=== PATIENT | male | born 1960 | race African-American/Black ===

== ENCOUNTER 2017-09-18 09:49 | Emergency (ER) | payer SELFPAY ==
[2017-09-18] MEDS ORDERED: Multivit, Chewable SF 1 TAB PO SCH (10:45)
[2017-09-18] MEDS ORDERED: Folic Acid 1 MG TAB PO SCH (10:45)
--- NOTE | 2017-09-18 10:57 | CT ---
CT HEAD WITHOUT CONTRAST: Technique: Multiple axial tomograms were head through the head without IV enhancement. History: Seizures. Comparison: 08-18-12 FINDINGS: Ventricles have normal size and position. Mild cortical volume loss. No evidence of intracranial mas s, hemorrhage, or infarct identified. Sinuses and mastoids are clear. IMPRESSION: No evidence of acute abnormality. POS: [facility]
[2017-09-18 11:13] LABS: #Eosinphils 0.2 thou/uL (0.0-0.7); #Lymphocytes 2.2 thou/uL (1.20-3.40); #Monocytes 0.7 thou/uL (0.11-0.59); #Neutrophils 5.9 thou/uL (1.40-6.50); %Basophils 0.4 % (0.0-1.0); %Lymphocytes 24.2 % (21.0-51.0); %Monocytes 8.1 % (0.0-10.0); Hematocrit 51.1 % (42.0-52.0); Mean Platelet Volume 7.4 fL (7.4-10.4); Red Blood Cell (RBC) Count 5.54 mill/uL (4.70-6.10); White Blood Cell (WBC) Count 9.1 thou/uL (4.8-10.8)
[2017-09-18 11:24] LABS: ALT (SGPT) 26 U/L (8-55); AST (SGOT) 27 U/L (5-34); Alkaline Phosphatase 103 U/L (40-150); Anion Gap 12 mmol/L (10-20); BUN (Urea Nitrogen) 8 mg/dL (8.4-25.7); Bilirubin, Total 0.3 mg/dL (0.2-1.2); Calc. Creatinine Clearance 0 mL/min (70-130); Carbon Dioxide 25 mmol/L (22-29); Chloride 103 mmol/L (98-107); Estimated GFR-MDRD Greater than 90; Globulin 4.5 g/dL (2.4-3.5); Protein, Total 8.1 g/dL (6.0-8.3); Target Cells SLIGHT = 2-5 cells (100X) (0-1/hpf)
== END 2017-09-18 12:21 | disposition home or self-care (01) ==
LOC: ERS 09:49
DX: F10.129 Alcohol abuse with intoxication, unspecified (principal); R21 Rash and other nonspecific skin eruption; F17.210 Nicotine dependence, cigarettes, uncomplicated
CPT/HCPCS: 70450; 80053; 85025; 96360

== ENCOUNTER 2018-09-19 18:25 | Emergency (ER) | payer SELFPAY ==
[2018-09-19] MEDS ORDERED: Ketorolac Tromethamine 30 MG/ML VIAL ONE (19:28)
[2018-09-19 19:46] LABS: #Basophils 0.1 thou/uL (0.0-0.2); #Eosinphils 0.2 thou/uL (0.0-0.7); #Lymphocytes 3.1 thou/uL (1.20-3.40); #Monocytes 0.7 thou/uL (0.11-0.59); #Neutrophils 5.4 thou/uL (1.40-6.50); %Basophils 0.6 % (0.0-1.0); %Eosinophils 1.9 % (0.0-10.0); %Lymphocytes 32.6 % (21.0-51.0); %Monocytes 7.7 % (0.0-10.0); %Neutrophils 57.3 % (42.0-75.0); Hemoglobin 16.1 g/dL (14.0-18.0); Mean Corpuscular HGB CONC 31.8 g/dL (32.0-36.0); Mean Corpuscular Hemoglobin 29.2 pg (27.0-31.0); Mean Corpuscular Volume 91.9 fL (78.0-98.0); Platelet Count 229 thou/uL (130-400); RBC Distribution Width 14.3 % (11.5-14.5); White Blood Cell (WBC) Count 9.5 thou/uL (4.8-10.8)
[2018-09-19 19:55] LABS: ALT (SGPT) 26 U/L (8-55); AST (SGOT) 30 U/L (5-34); Alcohol 280 mg/dL (Less than 10); Alkaline Phosphatase 99 U/L (40-150); Anion Gap 14 mmol/L (10-20); BUN (Urea Nitrogen) 5 mg/dL (8.4-25.7); Bilirubin, Total 0.2 mg/dL (0.2-1.2); CK (CPK) 215 U/L (30-200); Calc. Creatinine Clearance 0 mL/min (70-130); Calcium 9.7 mg/dL (7.8-10.44); Carbon Dioxide 22 mmol/L (22-29); Chloride 100 mmol/L (98-107); Estimated GFR-MDRD Greater than 90; Globulin 4.2 g/dL (2.4-3.5); Glucose 78 mg/dL (70-105); Potassium 3.7 mmol/L (3.5-5.1); Protein, Total 8.2 g/dL (6.0-8.3); Sodium 132 mmol/L (136-145)
--- NOTE | 2018-09-19 20:30 | CT ---
CT BRAIN 09/19/18 HISTORY: Seizure. Noncontrast enhanced CT images of the brain obtained. Images demonstrate the brain to be unremarkable. No evidence of intracranial masses, hemorrhages, str okes or contusions seen. Ventricles are of normal size. IMPRESSION: Normal CT brain. POS: [facility]
--- NOTE | 2018-09-19 21:34 | CT ---
CT LUMBAR SPINE: 09/19/18 HISTORY: Fall. Back pain. Axial images were obtained with coronal and sagittal reconstructions. Images demonstrate no significa nt evidence of lumbar spine fractures or acute bony lesions. Some facet degenerative changes seen at the L4-5 and L5-S1 facet joints. No significant evidence of central or neural foraminal narrowing is seen. IMPRESSION: L4- 5 and L5-S1 facet hypertrophic changes. POS: [facility]
== END 2018-09-20 00:13 | disposition home or self-care (01) ==
LOC: ERS 18:25
DX: S30.0XXA Contusion of lower back and pelvis, initial encounter (principal); F10.129 Alcohol abuse with intoxication, unspecified; I10 Essential (primary) hypertension; F17.210 Nicotine dependence, cigarettes, uncomplicated; W19.XXXA Unspecified fall, initial encounter
CPT/HCPCS: 70450; 72131; 80053; 80307; 82550; 84146; 85025; 96361; 96374; J1885

== ENCOUNTER 2021-08-06 19:51 | Emergency (ER) | payer SELFPAY ==
[2021-08-06] MEDS ORDERED: Ketorolac Tromethamine 30 MG/ML VIAL ONE (23:44)
== END 2021-08-07 00:15 | disposition home or self-care (01) ==
LOC: ERS 19:51
DX: G40.909 Epilepsy, unspecified, not intractable, without status epilepticus (principal); M25.552 Pain in left hip; K02.9 Dental caries, unspecified; Z79.899 Other long term (current) drug therapy; I10 Essential (primary) hypertension; F17.210 Nicotine dependence, cigarettes, uncomplicated
CPT/HCPCS: 36415; 70450; 72072; 80177; 96372; J1885

== ENCOUNTER 2022-04-18 12:06 | Emergency (ER) | payer SELFPAY ==
[2022-04-18] MEDS ORDERED: Ketorolac Tromethamine 30 MG/ML VIAL ONE (14:22)
== END 2022-04-18 14:35 | disposition home or self-care (01) ==
LOC: ERS 12:06
DX: M79.605 Pain in left leg (principal); I10 Essential (primary) hypertension; F17.210 Nicotine dependence, cigarettes, uncomplicated; Z79.899 Other long term (current) drug therapy
CPT/HCPCS: 96372; 99283; J1885

== ENCOUNTER 2022-09-21 20:37 | Inpatient (IN) | payer SELFPAY ==
[2022-09-21 21:32] LABS: #Eosinphils 0.2 thou/uL (0.0-0.7); #Lymphocytes 3.1 thou/uL (1.20-3.40); #Monocytes 0.9 thou/uL (0.11-0.59); #Neutrophils 6.6 thou/uL (1.40-6.50); %Basophils 0.3 % (0.0-1.0); %Eosinophils 1.6 % (0.0-10.0); %Lymphocytes 28.5 % (21.0-51.0); %Monocytes 8.7 % (0.0-10.0); %Neutrophils 60.8 % (42.0-75.0); Hemoglobin 14.6 g/dL (14.0-18.0); Mean Corpuscular HGB CONC 32.8 g/dL (32.0-36.0); Mean Corpuscular Hemoglobin 30.2 pg (27.0-31.0); Mean Corpuscular Volume 92.1 fl (78.0-98.0); Mean Platelet Volume 7.9 fL (7.4-10.4); Platelet Count 271 thou/uL (130-400); RBC Distribution Width 13.5 % (11.5-14.5); Red Blood Cell (RBC) Count 4.83 mill/uL (4.70-6.10); White Blood Cell (WBC) Count 10.8 thou/uL (4.8-10.8)
[2022-09-21] MEDS ORDERED: levETIRAcetam 500 MG/5 ML VIAL ONE (21:39)
[2022-09-21 21:54] LABS: ALT (SGPT) 14 U/L (8-55); AST (SGOT) 16 U/L (5-34); Acetaminophen Less than 10.0 mcg/mL (10.0-30.0); Albumin 3.6 g/dL (3.5-5.0); Alcohol 367 mg/dL (Less than 10); Alkaline Phosphatase 108 U/L (40-110); Anion Gap 16 mmol/L (10-20); BUN (Urea Nitrogen) 4 mg/dL (8.4-25.7); Bilirubin, Total 0.4 mg/dL (0.2-1.2); Calc. Creatinine Clearance 0 mL/min (70-130); Calcium 8.9 mg/dL (7.8-10.44); Carbon Dioxide 20 mmol/L (22-29); Chloride 91 mmol/L (98-107); Estimated GFR 105; Globulin 3.4 g/dL (2.4-3.5); Glucose 104 mg/dL (70-105); Potassium 3.8 mmol/L (3.5-5.1); Salicylate Less than 8.0 mg/dL (15.0-30.0); Sodium 123 mmol/L (136-145)
[2022-09-21 21:55] LABS: Amphetamine Not Detected (NotDetected); Barbiturates Screen Not Detected (NotDetected); Benzodiazepine Screen Not Detected (NotDetected); Cocaine Metabolite Screen Not Detected (NotDetected); Methadone Not Detected (NotDetected); Methamphetamine Not Detected (NotDetected); Opiate Screen Not Detected (NotDetected); Oxycodone Screen Not Detected (NotDetected); Phencyclidine (PCP) Not Detected (NotDetected); THC/Cannabinoid Screen Not Detected (NotDetected); Tricyclic Screen Not Detected (NotDetected)
[2022-09-21] MEDS ORDERED: Ketorolac Tromethamine 30 MG/ML VIAL ONE (22:41)
[2022-09-22 00:04] VITALS: BMI 32.5
[2022-09-22 00:34] LABS: Lactic Acid 1.9 mmol/L (0.5-2.2)
[2022-09-22 00:38] LABS: Anion Gap 16 mmol/L (10-20); BUN (Urea Nitrogen) 4 mg/dL (8.4-25.7); Calc. Creatinine Clearance 154 mL/min (70-130); Calcium 8.9 mg/dL (7.8-10.44); Carbon Dioxide 20 mmol/L (22-29); Chloride 96 mmol/L (98-107); Estimated GFR 108; Glucose 98 mg/dL (70-105); Magnesium 1.9 mg/dL (1.6-2.6); Potassium 3.5 mmol/L (3.5-5.1); Sodium 128 mmol/L (136-145); Uric Acid 4.9 mg/dL (3.5-7.2)
[2022-09-22] MEDS ORDERED: Ondansetron PF 4 MG/2 ML Vial IVP PRN (00:39)
[2022-09-22] MEDS ORDERED: Midazolam HCl 2 mg/2 ml Vial SLOW IVP PRN (00:54)
[2022-09-22] MEDS: Nicotine 21 MG PATCH TD SCH (03:38)
[2022-09-22 05:01] LABS: Anion Gap 13 mmol/L (10-20); BUN (Urea Nitrogen) Less than 4 mg/dL (8.4-25.7); Calc. Creatinine Clearance 165 mL/min (70-130); Carbon Dioxide 23 mmol/L (22-29); Chloride 99 mmol/L (98-107); Estimated GFR 111; Glucose 95 mg/dL (70-105); Potassium 3.5 mmol/L (3.5-5.1); Sodium 131 mmol/L (136-145)
[2022-09-22] MEDS: Dextrose 5%-Lactated Ringers 1,000 ML IV SCH ×3 (05:25→20:30)
[2022-09-22] MEDS ORDERED: Ibuprofen 200 MG TAB ONE (05:51)
[2022-09-22] MEDS ORDERED: Morphine 4 MG/ML VIAL SLOW IVP SCH ×2 (06:45→09:45)
[2022-09-22] MEDS ORDERED: Morphine 4 MG/ML VIAL ONE ×2 (06:45→08:54)
[2022-09-22] MEDS ORDERED: Potassium Chloride 20 MEQ TAB PO SCH (08:30)
[2022-09-22] MEDS ORDERED: Potassium Chloride 20 MEQ TAB ONE (08:40)
[2022-09-22] MEDS ORDERED: Enoxaparin Sodium 30 MG/0.3 ML SYRINGE ONE (08:40)
[2022-09-22] MEDS: Enoxaparin Sodium 30 MG/0.3 ML SYRINGE SC SCH (08:43)
[2022-09-22 08:52] LABS: Anion Gap 14 mmol/L (10-20); BUN (Urea Nitrogen) Less than 4 mg/dL (8.4-25.7); Calc. Creatinine Clearance 157 mL/min (70-130); Calcium 9.2 mg/dL (7.8-10.44); Carbon Dioxide 23 mmol/L (22-29); Chloride 102 mmol/L (98-107); Estimated GFR 109; Glucose 108 mg/dL (70-105); Sodium 135 mmol/L (136-145)
[2022-09-22] MEDS ORDERED: Morphine 2 MG/ML VIAL SLOW IVP ONE (09:04)
[2022-09-22] MEDS ORDERED: Lorazepam 2 MG/ML VIAL IM PRN (09:31)
[2022-09-22 09:43] LABS: Troponin I Less than 0.010 ng/mL (< 0.028)
[2022-09-22] MEDS ORDERED: Electrolyte Replacement Protocol 1 EACH FS SCH (09:45)
[2022-09-22] MEDS ORDERED: Thiamine 100 MG TAB PO SCH (09:45)
[2022-09-22 10:13] LABS: Phosphorus 4.2 mg/dL (2.3-4.7)
[2022-09-22] MEDS ORDERED: Nitroglycerin 0.4 MG TAB (25 Tab Bottle) SL PRN (10:14)
[2022-09-22 11:01] LABS: Potassium, Urine 67.8 mmol/L
[2022-09-22] MEDS ORDERED: Magnesium 2 GM/50 ML(in water) 2 GM in Premix Bag 1 BAG IVPB SCH (11:15)
[2022-09-22] MEDS: Lorazepam 1 MG TAB PO SCH ×3 (11:32→22:06)
[2022-09-22] MEDS ORDERED: Ketorolac Tromethamine 30 MG/ML VIAL IVP SCH (11:33)
[2022-09-22] MEDS ORDERED: Morphine 2 MG/ML VIAL SLOW IVP PRN (11:37)
[2022-09-22 13:24] LABS: Anion Gap 15 mmol/L (10-20); BUN (Urea Nitrogen) 4 mg/dL (8.4-25.7); Calc. Creatinine Clearance 162 mL/min (70-130); Calcium 9.7 mg/dL (7.8-10.44); Carbon Dioxide 25 mmol/L (22-29); Chloride 100 mmol/L (98-107); Estimated GFR 110; Glucose 94 mg/dL (70-105); Sodium 136 mmol/L (136-145)
[2022-09-22 13:29] LABS: Troponin I Less than 0.010 ng/mL (< 0.028)
[2022-09-22] MEDS: AMPicillin 1 GM in Sodium Chloride 0.9% 100 ML IVPB SCH ×3 (13:56→23:29)
[2022-09-22 14:28] LABS: Albumin 3.8 g/dL (3.5-5.0); Anion Gap 18 mmol/L (10-20); BUN (Urea Nitrogen) 4 mg/dL (8.4-25.7); BUN/Creatinine Ratio 6.56; Calc. Creatinine Clearance 162 mL/min (70-130); Calcium 9.7 mg/dL (7.8-10.44); Carbon Dioxide 22 mmol/L (22-29); Chloride 102 mmol/L (98-107); Estimated GFR 110; Glucose 94 mg/dL (70-105); Magnesium 1.8 mg/dL (1.6-2.6); Phosphorus 3.9 mg/dL (2.3-4.7); Potassium 4.1 mmol/L (3.5-5.1); Sodium 138 mmol/L (136-145)
[2022-09-22 16:10] LABS: Troponin I Less than 0.010 ng/mL (< 0.028)
[2022-09-22 16:16] LABS: Anion Gap 15 mmol/L (10-20); BUN (Urea Nitrogen) Less than 4 mg/dL (8.4-25.7); Calc. Creatinine Clearance 152 mL/min (70-130); Calcium 9.5 mg/dL (7.8-10.44); Carbon Dioxide 23 mmol/L (22-29); Chloride 100 mmol/L (98-107); Estimated GFR 108; Glucose 153 mg/dL (70-105); Potassium 3.9 mmol/L (3.5-5.1); Sodium 134 mmol/L (136-145)
[2022-09-22] MEDS ORDERED: Electrolyte Replacement Protocol FS PRN (17:00)
[2022-09-22] MEDS: levETIRAcetam 500 MG TAB PO SCH (20:30)
[2022-09-22] MEDS: Atorvastatin Calcium 40 MG TAB PO SCH (20:30)
[2022-09-22 20:52] LABS: Anion Gap 11 mmol/L (10-20); BUN (Urea Nitrogen) 4 mg/dL (8.4-25.7); Calc. Creatinine Clearance 159 mL/min (70-130); Calcium 9.4 mg/dL (7.8-10.44); Carbon Dioxide 24 mmol/L (22-29); Chloride 99 mmol/L (98-107); Estimated GFR 109; Glucose 107 mg/dL (70-105); Potassium 3.9 mmol/L (3.5-5.1); Sodium 130 mmol/L (136-145)
[2022-09-22] MEDS: Morphine 4 MG/ML VIAL SLOW IVP PRN (22:06)
[2022-09-23] MEDS: Nicotine 21 MG PATCH TD SCH (02:25)
[2022-09-23] MEDS: Morphine 4 MG/ML VIAL SLOW IVP PRN ×2 (02:25→21:28)
[2022-09-23] MEDS: AMPicillin 1 GM in Sodium Chloride 0.9% 100 ML IVPB SCH ×3 (04:59→17:26)
[2022-09-23] MEDS: Lorazepam 1 MG TAB PO SCH ×4 (04:59→21:27)
[2022-09-23 05:01] LABS: Magnesium 1.8 mg/dL (1.6-2.6)
[2022-09-23] MEDS: Dextrose 5%-Lactated Ringers 1,000 ML IV SCH (07:29)
[2022-09-23 07:51] LABS: #Basophils 0.1 thou/uL (0.0-0.2); #Lymphocytes 1.6 thou/uL (1.20-3.40); #Monocytes 1.4 thou/uL (0.11-0.59); #Neutrophils 11.6 thou/uL (1.40-6.50); %Basophils 0.6 % (0.0-1.0); %Eosinophils 0.2 % (0.0-10.0); %Lymphocytes 10.6 % (21.0-51.0); %Monocytes 9.2 % (0.0-10.0); %Neutrophils 79.3 % (42.0-75.0); Hemoglobin 15.9 g/dL (14.0-18.0); Mean Corpuscular HGB CONC 31.9 g/dL (32.0-36.0); Mean Corpuscular Hemoglobin 29.4 pg (27.0-31.0); Mean Platelet Volume 7.9 fL (7.4-10.4); Platelet Count 273 thou/uL (130-400); RBC Distribution Width 13.4 % (11.5-14.5); Red Blood Cell (RBC) Count 5.41 mill/uL (4.70-6.10); White Blood Cell (WBC) Count 14.6 thou/uL (4.8-10.8)
[2022-09-23] MEDS ORDERED: Magnesium 2 GM/50 ML(in water) 2 GM in Premix Bag 1 BAG IVPB SCH (08:00)
[2022-09-23 08:10] LABS: Albumin 3.5 g/dL (3.5-5.0); Anion Gap 11 mmol/L (10-20); BUN (Urea Nitrogen) 4 mg/dL (8.4-25.7); BUN/Creatinine Ratio 6.25; Calc. Creatinine Clearance 154 mL/min (70-130); Calcium 10.1 mg/dL (7.8-10.44); Carbon Dioxide 25 mmol/L (22-29); Chloride 96 mmol/L (98-107); Estimated GFR 108; Glucose 113 mg/dL (70-105); Magnesium 1.9 mg/dL (1.6-2.6); Phosphorus 3.4 mg/dL (2.3-4.7); Potassium 3.9 mmol/L (3.5-5.1); Sodium 128 mmol/L (136-145)
[2022-09-23] MEDS: Amlodipine 5 MG TAB PO SCH (08:28)
[2022-09-23] MEDS: levETIRAcetam 500 MG TAB PO SCH ×2 (08:28→21:27)
[2022-09-23] MEDS: Folic Acid 1 MG TAB PO SCH (08:28)
[2022-09-23] MEDS: Multivit, Therapeutic 1 TAB PO SCH (08:28)
[2022-09-23] MEDS: Thiamine 100 MG TAB PO SCH (08:28)
[2022-09-23] MEDS: Enoxaparin Sodium 30 MG/0.3 ML SYRINGE SC SCH (08:29)
[2022-09-23] MEDS ORDERED: Sodium Chloride 1 GM TAB PO SCH (10:45)
[2022-09-23] MEDS: Sodium Chloride 1 GM TAB PO SCH ×2 (14:24→21:28)
[2022-09-23] MEDS: metroNIDAZOLE 500 MG in Premix Bag 1 BAG IVPB SCH ×2 (14:25→21:29)
[2022-09-23] MEDS: Atorvastatin Calcium 40 MG TAB PO SCH (21:27)
[2022-09-24] MEDS: AMPicillin 1 GM in Sodium Chloride 0.9% 100 ML IVPB SCH ×3 (00:57→11:55)
[2022-09-24] MEDS: Nicotine 21 MG PATCH TD SCH (01:04)
[2022-09-24] MEDS: Lorazepam 1 MG TAB PO SCH ×2 (04:53→10:36)
[2022-09-24] MEDS: metroNIDAZOLE 500 MG in Premix Bag 1 BAG IVPB SCH ×3 (05:01→20:33)
[2022-09-24] MEDS: Enoxaparin Sodium 30 MG/0.3 ML SYRINGE SC SCH (10:33)
[2022-09-24] MEDS: Amlodipine 5 MG TAB PO SCH (10:33)
[2022-09-24] MEDS: Folic Acid 1 MG TAB PO SCH (10:33)
[2022-09-24] MEDS: Thiamine 100 MG TAB PO SCH (10:33)
[2022-09-24] MEDS: Sodium Chloride 1 GM TAB PO SCH ×3 (10:34→20:32)
[2022-09-24] MEDS: levETIRAcetam 500 MG TAB PO SCH ×2 (10:34→20:33)
[2022-09-24] MEDS: Multivit, Therapeutic 1 TAB PO SCH (10:34)
[2022-09-24 14:23] LABS: Anion Gap 11 mmol/L (10-20); BUN (Urea Nitrogen) 7 mg/dL (8.4-25.7); Calc. Creatinine Clearance 141 mL/min (70-130); Calcium 9.5 mg/dL (7.8-10.44); Carbon Dioxide 26 mmol/L (22-29); Chloride 98 mmol/L (98-107); Estimated GFR 105; Glucose 129 mg/dL (70-105); Potassium 3.8 mmol/L (3.5-5.1); Sodium 131 mmol/L (136-145)
[2022-09-24] MEDS: Clindamycin 150 MG CAP PO SCH ×2 (18:05→23:29)
[2022-09-24] MEDS: Atorvastatin Calcium 40 MG TAB PO SCH (20:33)
[2022-09-25] MEDS: Nicotine 21 MG PATCH TD SCH (01:45)
[2022-09-25] MEDS: metroNIDAZOLE 500 MG in Premix Bag 1 BAG IVPB SCH (06:08)
[2022-09-25] MEDS: Clindamycin 150 MG CAP PO SCH (06:09)
[2022-09-25] MEDS: Multivit, Therapeutic 1 TAB PO SCH (08:37)
[2022-09-25] MEDS: Amlodipine 5 MG TAB PO SCH (08:37)
[2022-09-25] MEDS: Thiamine 100 MG TAB PO SCH (08:37)
[2022-09-25] MEDS: Folic Acid 1 MG TAB PO SCH (08:37)
[2022-09-25] MEDS: levETIRAcetam 500 MG TAB PO SCH (08:37)
[2022-09-25] MEDS: Sodium Chloride 1 GM TAB PO SCH (08:38)
[2022-09-25] MEDS ORDERED: Enoxaparin Sodium 40 MG/0.4 ML SYRINGE SC SCH (09:00)
[2022-09-25 09:28] LABS: Anion Gap 13 mmol/L (10-20); BUN (Urea Nitrogen) 8 mg/dL (8.4-25.7); Calc. Creatinine Clearance 135 mL/min (70-130); Calcium 9.8 mg/dL (7.8-10.44); Carbon Dioxide 25 mmol/L (22-29); Chloride 99 mmol/L (98-107); Estimated GFR 104; Glucose 99 mg/dL (70-105); Potassium 3.8 mmol/L (3.5-5.1); Sodium 133 mmol/L (136-145)
[2022-09-25] MEDS ORDERED: Lorazepam 0.5 MG TAB PO PRN (09:31)
[2022-09-25] MEDS ORDERED: Thiamine 100 MG TAB PO SCH (09:45)
[2022-09-26 02:36] VITALS: BP 127/85
[2022-09-26 02:49] VITALS: TEMP 98.3
== END 2022-09-25 10:30 | disposition home or self-care (01) | DRG 644 ==
LOC: ERS 20:37 → ERHOLD 23:28 → 2NO 09-22 09:30 → T4-A 09-24 17:47
PROVIDERS: ADMIT Internal Medicine; ATTEND Hospitalist
DX: E22.2 Syndrome of inappropriate secretion of antidiuretic hormone (principal); E87.29 Other acidosis; G40.909 Epilepsy, unspecified, not intractable, without status epilepticus; E87.6 Hypokalemia; I95.9 Hypotension, unspecified; F10.129 Alcohol abuse with intoxication, unspecified; Y90.8 Blood alcohol level of 240 mg/100 ml or more; Z20.822 Contact with and (suspected) exposure to COVID-19; M19.90 Unspecified osteoarthritis, unspecified site; C61 Malignant neoplasm of prostate; F17.210 Nicotine dependence, cigarettes, uncomplicated; Z79.899 Other long term (current) drug therapy; I10 Essential (primary) hypertension; K04.7 Periapical abscess without sinus; R07.9 Chest pain, unspecified; E78.1 Pure hyperglyceridemia; E66.01 Morbid (severe) obesity due to excess calories; Z68.32 Body mass index [BMI] 32.0-32.9, adult
CPT/HCPCS: 36415; 70450; 70487; 71045; 71275; 80048; 80053; 80069; 80177; 80306; 80307; 82550; 83605; 83735; 83930; 83935; 84100; 84133; 84146; 84300; 84443; 84484; 84550; 85025; 85379; 87040; 87086; 93005; 93010; 94640; 96365; 96375; J0290; J1650; J1885; J1953; J2270; J3475; J3490; J7620; U0003; U0005

== ENCOUNTER 2024-11-16 16:39 | Emergency (ER) | payer BC, SELFPAY ==
[2024-11-16 18:32] LABS: MONO NEGATIVE CONTROL ZONE White (Negative) (White); MONO POSITIVE CONTROL Pink Line (Positive) (PINK/RED); Mononucleosis NEGATIVE (NEGATIVE)
[2024-11-16 19:34] LABS: #Basophils Less than 0.03 10x3/uL (0.0-0.2); %Basophils 0.2 % (0.0-1.0); %Eosinophils 0.3 % (0.0-10.0); %Lymphocytes 19.2 % (21.0-51.0); %Monocytes 9.1 % (0.0-10.0); %Neutrophils 70.8 % (42.0-75.0); Hematocrit 45.9 % (42.0-52.0); Hemoglobin 15.6 g/dL (14.0-18.0); Mean Corpuscular Hemoglobin 27.2 pg (27.0-31.0); Mean Corpuscular Volume 80.1 fL (78.0-98.0); Mean Platelet Volume 9.9 fL (7.4-10.4); Platelet Count 290 10x3/uL (130-400); RBC Distribution Width 14.8 % (11.5-14.5); Red Blood Cell (RBC) Count 5.73 mill/uL (4.70-6.10)
[2024-11-16] MEDS ORDERED: Ketorolac Tromethamine 30 MG (1 mL) VIAL ONE (19:40)
[2024-11-16] MEDS ORDERED: Dexamethasone 10 MG/ML VIAL ONE (19:43)
[2024-11-16 19:45] LABS: ALT (SGPT) 36 U/L (8-55); AST (SGOT) 32 U/L (5-34); Albumin 3.3 g/dL (3.4-4.8); Alkaline Phosphatase 97 U/L (40-110); Anion Gap 17 mmol/L (10-20); BUN (Urea Nitrogen) 7 mg/dL (8.4-25.7); Bilirubin, Total 0.6 mg/dL (0.2-1.2); Calc. Creatinine Clearance 0 mL/min (70-130); Calcium 10.1 mg/dL (7.8-10.44); Carbon Dioxide 29 mmol/L (23-31); Chloride 90 mmol/L (98-107); Estimated GFR 100; Globulin 5.3 g/dL (2.4-3.5); Glucose 103 mg/dL (80-115); Potassium 3.9 mmol/L (3.5-5.1); Protein, Total 8.6 g/dL (5.8-8.1); Sodium 132 mmol/L (136-145)
[2024-11-16 19:46] LABS: Acetaminophen Less than 10 mcg/mL (Less than 10); Salicylate Less than 8.0 mg/dL (Less than 8.0)
[2024-11-16] MEDS ORDERED: Sodium Chloride 0.9% 100 ML ONE (22:51)
[2024-11-16] MEDS ORDERED: Piperacillin/Tazobactam 4.5 GM VIAL ONE (22:51)
== END 2024-11-17 08:55 | disposition short-term general hospital (02) ==
LOC: ERS 16:39
DX: M46.22 Osteomyelitis of vertebra, cervical region (principal); I10 Essential (primary) hypertension; F17.210 Nicotine dependence, cigarettes, uncomplicated; Z79.899 Other long term (current) drug therapy; Z86.73 Personal history of transient ischemic attack (TIA), and cerebral infarction without residual deficits
CPT/HCPCS: 36415; 70491; 71045; 80053; 80307; 83605; 84145; 84443; 85025; 86141; 86308; 87081; 87430; 96365; 96372; 96375; J1100; J1885; J2543

== ENCOUNTER 2024-12-29 20:39 | Inpatient (IN) | payer OTHER ==
[~2024-12-29 20:39] MED LIST: Iopamidol-370 76% 500 ML MDV (1 ML CHARGE) ONE
[2024-12-29] MEDS ORDERED: Piperacillin/Tazobactam 4.5 GM VIAL ONE (21:29)
[2024-12-29] MEDS ORDERED: Sodium Chloride 0.9% 100 ML ONE (21:29)
[2024-12-29 21:50] LABS: #Basophils 0.05 10x3/uL (0.0-0.2); %Basophils 0.6 % (0.0-1.0); %Eosinophils 1.6 % (0.0-10.0); %Lymphocytes 42.8 % (21.0-51.0); %Monocytes 9.6 % (0.0-10.0); %Neutrophils 45.1 % (42.0-75.0); Hematocrit 32.1 % (42.0-52.0); Hemoglobin 10.7 g/dL (14.0-18.0); Mean Corpuscular HGB CONC 33.3 g/dL (32.0-36.0); Mean Corpuscular Hemoglobin 26.8 pg (27.0-31.0); Mean Corpuscular Volume 80.3 fL (78.0-98.0); Mean Platelet Volume 9.6 fL (7.4-10.4); Platelet Count 363 10x3/uL (130-400); RBC Distribution Width 17.7 % (11.5-14.5)
[2024-12-29 22:09] LABS: ALT (SGPT) 28 U/L (Less than 45); AST (SGOT) 40 U/L (11-34); Albumin 3.1 g/dL (3.1-4.5); Alkaline Phosphatase 178 U/L (40-110); Anion Gap 21 mmol/L (10-20); BUN (Urea Nitrogen) 5 mg/dL (8.4-25.7); Bilirubin, Total 0.4 mg/dL (0.3-1.2); Calc. Creatinine Clearance 0 mL/min (70-130); Calcium 9.2 mg/dL (7.8-10.44); Carbon Dioxide 28 mmol/L (23-31); Chloride 93 mmol/L (98-107); Estimated GFR 103; Globulin 4.7 g/dL (2.4-3.5); Glucose 105 mg/dL (80-115); Potassium 2.9 mmol/L (3.5-5.1); Protein, Total 7.8 g/dL (5.8-8.1); Sodium 139 mmol/L (136-145)
[2024-12-29] MEDS ORDERED: Potassium Bicarbonate/Cit Ac 20 MEQ TAB ONE (22:41)
[2024-12-29] MEDS ORDERED: Ondansetron PF 4 MG/2 ML Vial IVP PRN (23:51)
[2024-12-29 23:57] LABS: Bacteria/HPF None Seen HPF (None Seen); Bilirubin Negative (Negative); Blood, Urine Negative (Negative); CAUTI Indications for Culture Dysuria,urgency,freq; Clarity Clear (Clear); Glucose, Urine (Dipstick) Normal (Negative); Ketone, Urine Negative (Negative); Leukocyte Negative Leu/uL (Negative); Nitrite Negative (Negative); Protein, Urine (Dipstick) Negative (Neg-Trace); RBC/HPF 0-3 HPF (0-3); Specific Gravity, Urine 1.008 (1.002-1.036); Squamous Epithelial 0-3 HPF (0-3); Urobilinogen 3 mg/dL (Less than 2); WBC/HPF 0-3 HPF (0-3)
[2024-12-29] MEDS ORDERED: Potassium Chloride 20 MEQ (100 mL) BAG ONE (23:59)
[2024-12-30 00:03] LABS: Urine Culture Reflex No No
[2024-12-30] MEDS: Vancomycin (BATCH) 2 GM in Premix 1 BAG IVPB SCH (00:38)
[2024-12-30] MEDS: Dextrose 5 % And 0.9 % NaCl 1,000 ML IV SCH (01:01)
[2024-12-30] MEDS: Potassium Bicarbonate/Cit Ac 20 MEQ TAB PER TUBE SCH ×2 (01:27→02:40)
[2024-12-30] MEDS: Acetaminophen 325 MG TAB PER TUBE PRN (01:27)
[2024-12-30 01:33] LABS: Lactic Acid 4.04 mmol/L (0.50-2.20)
[2024-12-30 01:40] LABS: Influenza A by NAA Not Detected (NotDetected); Influenza B by NAA Not Detected (NotDetected); RSV by NAA Not Detected (NotDetected); SARS-CoV-2 NAA Rapid Test Not Detected (NotDetected)
[2024-12-30] MEDS: Thiamine HCl 200 MG/2 ML VIAL SLOW IVP SCH (02:30)
[2024-12-30 03:01] VITALS: BMI 29.0
[2024-12-30] MEDS: Ketorolac Tromethamine 30 MG (1 mL) VIAL IVP SCH (03:39)
[2024-12-30] MEDS: Piperacillin/Tazobactam 3.375 GM in Sodium Chloride 0.9% 100 ML IVPB SCH (03:40)
[2024-12-30 04:23] LABS: #Basophils 0.06 10x3/uL (0.0-0.2); %Basophils 0.7 % (0.0-1.0); %Eosinophils 1.1 % (0.0-10.0); %Lymphocytes 20.5 % (21.0-51.0); %Monocytes 11.9 % (0.0-10.0); %Neutrophils 65.5 % (42.0-75.0); Hematocrit 29.5 % (42.0-52.0); Hemoglobin 9.9 g/dL (14.0-18.0); Mean Corpuscular HGB CONC 33.6 g/dL (32.0-36.0); Mean Corpuscular Hemoglobin 26.8 pg (27.0-31.0); Mean Corpuscular Volume 79.7 fL (78.0-98.0); Mean Platelet Volume 10.1 fL (7.4-10.4); Platelet Count 349 10x3/uL (130-400); RBC Distribution Width 17.9 % (11.5-14.5)
[2024-12-30 04:42] LABS: Anion Gap 19 mmol/L (10-20); BUN (Urea Nitrogen) 5 mg/dL (8.4-25.7); Calc. Creatinine Clearance 118 mL/min (70-130); Calcium 8.6 mg/dL (7.8-10.44); Carbon Dioxide 28 mmol/L (23-31); Chloride 97 mmol/L (98-107); Estimated GFR 103; Glucose 132 mg/dL (80-115); Magnesium 1.3 mg/dL (1.6-2.6); Potassium 3.1 mmol/L (3.5-5.1); Sodium 141 mmol/L (136-145)
[2024-12-30 04:45] LABS: Lactic Acid 4.47 mmol/L (0.50-2.20)
[2024-12-30] MEDS: Sodium Chloride 0.9% 500 ML IV SCH (05:12)
[2024-12-30] MEDS: Magnesium 2 GM/50 ML(in water) 2 GM in Premix 1 BAG IVPB SCH (05:17)
[2024-12-30] MEDS: Sodium Chloride 0.9% 1,000 ML IV SCH (06:12)
[2024-12-30] MEDS: Magnesium Sulfate 2 GM in Sodium Chloride 0.9% 100 ML IVPB SCH (06:12)
[2024-12-30 06:25] LABS: Legionella Urinary Ag Negative (Negative); Strep pneumo Urine Ag NEGATIVE (NEGATIVE)
[2024-12-30 07:32] LABS: Lactic Acid 3.35 mmol/L (0.50-2.20)
[2024-12-30] MEDS ORDERED: Vancomycin 1 GM in Premix 1 BAG IVPB SCH (09:00)
[2024-12-30] MEDS: FLU (Fluarix Triv) TS24-25(6MOS UP)/PF 45 MCG/0.5 ML Syringe IM ONE (09:09)
[2024-12-30] MEDS: Chlorhexidine Gluconate 15 ML UDCUP SSP SCH (09:21)
[2024-12-30] MEDS: Pantoprazole 40 MG VIAL IVP SCH (09:21)
[2024-12-30] MEDS: Thiamine 100 MG TAB PER TUBE SCH (09:22)
[2024-12-30] MEDS: levETIRAcetam 500 MG TAB PER TUBE SCH (09:22)
[2024-12-30] MEDS: Amlodipine 5 MG TAB PER TUBE SCH (09:22)
[2024-12-30] MEDS: Folic Acid 1 MG TAB PER TUBE SCH (09:22)
[2024-12-30] MEDS: VANCOMYCIN 1.25 GM/250 ML BAG 1.25 GM in Premix 1 BAG IVPB SCH (09:22)
[2024-12-30 09:47] VITALS: BMI 29.0
[2024-12-30] MEDS ORDERED: Lorazepam 2 MG/ML VIAL SLOW IVP PRN (11:45)
[2024-12-30] MEDS: Tamsulosin HCl 0.4 MG CAP PO SCH (20:32)
[2024-12-30] MEDS: Rosuvastatin 10 MG TAB PER TUBE SCH (20:32)
[2024-12-30] MEDS: Enoxaparin 40 MG (0.4 mL) SYRINGE SC SCH (20:33)
[2024-12-31 09:33] LABS: #Basophils Less than 0.03 10x3/uL (0.0-0.2); %Basophils 0.1 % (0.0-1.0); %Eosinophils 4.5 % (0.0-10.0); %Lymphocytes 25.2 % (21.0-51.0); %Monocytes 7.8 % (0.0-10.0); %Neutrophils 62.1 % (42.0-75.0); Hematocrit 29.9 % (42.0-52.0); Hemoglobin 9.7 g/dL (14.0-18.0); Mean Corpuscular HGB CONC 32.4 g/dL (32.0-36.0); Mean Corpuscular Hemoglobin 26.3 pg (27.0-31.0); Platelet Count 289 10x3/uL (130-400); RBC Distribution Width 18.6 % (11.5-14.5); Red Blood Cell (RBC) Count 3.69 mill/uL (4.70-6.10)
[2024-12-31 09:55] LABS: Lactic Acid 1.19 mmol/L (0.50-2.20)
[2024-12-31 10:01] LABS: ALT (SGPT) 17 U/L (Less than 45); AST (SGOT) 23 U/L (11-34); Albumin 2.4 g/dL (3.1-4.5); Alkaline Phosphatase 145 U/L (40-110); Anion Gap 13 mmol/L (10-20); BUN (Urea Nitrogen) Less than 4 mg/dL (8.4-25.7); Bilirubin, Total 0.8 mg/dL (0.3-1.2); Calc. Creatinine Clearance 139 mL/min (70-130); Calcium 8.4 mg/dL (7.8-10.44); Carbon Dioxide 27 mmol/L (23-31); Chloride 99 mmol/L (98-107); Estimated GFR 108; Globulin 3.8 g/dL (2.4-3.5); Glucose 110 mg/dL (80-115); Magnesium 1.5 mg/dL (1.6-2.6); Potassium 2.6 mmol/L (3.5-5.1); Protein, Total 6.2 g/dL (5.8-8.1); Sodium 136 mmol/L (136-145)
[2024-12-31] MEDS ORDERED: Electrolyte Replacement Protocol FS PRN (11:30)
[2024-12-31] MEDS ORDERED: Potassium Chloride 20 MEQ TAB PO SCH (11:45)
[2024-12-31] MEDS: Potassium Chloride 20 MEQ in Premix 1 BAG IVPB SCH (12:52)
[2024-12-31] MEDS: Magnesium 2 GM/50 ML(in water) 2 GM in Premix 1 BAG IVPB SCH (15:15)
[2025-01-01] MEDS: Potassium Chloride 20 MEQ in Premix 1 BAG IVPB SCH (01:08)
[2025-01-01 04:18] LABS: #Basophils 0.03 10x3/uL (0.0-0.2); %Basophils 0.3 % (0.0-1.0); %Eosinophils 7.2 % (0.0-10.0); %Lymphocytes 20.4 % (21.0-51.0); %Monocytes 5.9 % (0.0-10.0); %Neutrophils 65.8 % (42.0-75.0); Hematocrit 32.2 % (42.0-52.0); Hemoglobin 10.4 g/dL (14.0-18.0); Mean Corpuscular HGB CONC 32.3 g/dL (32.0-36.0); Mean Corpuscular Volume 83.6 fL (78.0-98.0); Mean Platelet Volume 10.7 fL (7.4-10.4); Platelet Count 270 10x3/uL (130-400); RBC Distribution Width 19.1 % (11.5-14.5); Red Blood Cell (RBC) Count 3.85 mill/uL (4.70-6.10)
[2025-01-01 04:32] LABS: ALT (SGPT) 14 U/L (Less than 45); AST (SGOT) 24 U/L (11-34); Albumin 2.3 g/dL (3.1-4.5); Alkaline Phosphatase 135 U/L (40-110); Anion Gap 12 mmol/L (10-20); BUN (Urea Nitrogen) 4 mg/dL (8.4-25.7); Bilirubin, Total 0.5 mg/dL (0.3-1.2); Calc. Creatinine Clearance 141 mL/min (70-130); Calcium 8.3 mg/dL (7.8-10.44); Carbon Dioxide 23 mmol/L (23-31); Chloride 105 mmol/L (98-107); Estimated GFR 108; Glucose 112 mg/dL (80-115); Potassium 3.2 mmol/L (3.5-5.1); Protein, Total 6.3 g/dL (5.8-8.1); Sodium 137 mmol/L (136-145)
[2025-01-01] MEDS: Potassium Chloride 20 MEQ TAB PO SCH (09:04)
[2025-01-02 08:10] LABS: #Basophils 0.05 10x3/uL (0.0-0.2); %Basophils 0.4 % (0.0-1.0); %Lymphocytes 17.5 % (21.0-51.0); %Monocytes 5.7 % (0.0-10.0); %Neutrophils 68.1 % (42.0-75.0); Hematocrit 33.4 % (42.0-52.0); Hemoglobin 10.5 g/dL (14.0-18.0); Mean Corpuscular HGB CONC 31.4 g/dL (32.0-36.0); Mean Corpuscular Hemoglobin 27.3 pg (27.0-31.0); Mean Platelet Volume 10.6 fL (7.4-10.4); Platelet Count 210 10x3/uL (130-400); RBC Distribution Width 20.6 % (11.5-14.5); Red Blood Cell (RBC) Count 3.84 mill/uL (4.70-6.10)
[2025-01-02 08:25] LABS: ALT (SGPT) 12 U/L (Less than 45); AST (SGOT) 17 U/L (11-34); Albumin 2.4 g/dL (3.1-4.5); Alkaline Phosphatase 125 U/L (40-110); Anion Gap 11 mmol/L (10-20); BUN (Urea Nitrogen) 6 mg/dL (8.4-25.7); Bilirubin, Total 0.4 mg/dL (0.3-1.2); Calc. Creatinine Clearance 143 mL/min (70-130); Calcium 8.4 mg/dL (7.8-10.44); Carbon Dioxide 20 mmol/L (23-31); Chloride 109 mmol/L (98-107); Estimated GFR 109; Globulin 3.8 g/dL (2.4-3.5); Glucose 101 mg/dL (80-115); Potassium 3.4 mmol/L (3.5-5.1); Protein, Total 6.2 g/dL (5.8-8.1); Sodium 137 mmol/L (136-145)
[2025-01-02] MEDS: Potassium Chloride 20 MEQ TAB PO SCH (09:49)
[2025-01-02] MEDS ORDERED: Methocarbamol 500 MG TAB PO PRN (10:17)
[2025-01-02] MEDS: Albumin 25% 25 GM (100 mL) BOT IVPB SCH (11:40)
[2025-01-02] MEDS: Budesonide 0.5 MG/2 ML NEB INH SCH (19:51)
[2025-01-03 05:18] LABS: #Basophils 0.05 10x3/uL (0.0-0.2); %Basophils 0.3 % (0.0-1.0); %Eosinophils 8.6 % (0.0-10.0); %Monocytes 5.6 % (0.0-10.0); Hematocrit 32.1 % (42.0-52.0); Hemoglobin 10.3 g/dL (14.0-18.0); Mean Corpuscular HGB CONC 32.1 g/dL (32.0-36.0); Mean Corpuscular Hemoglobin 27.5 pg (27.0-31.0); Mean Corpuscular Volume 85.6 fL (78.0-98.0); Mean Platelet Volume 10.4 fL (7.4-10.4); Platelet Count 246 10x3/uL (130-400); RBC Distribution Width 20.7 % (11.5-14.5); Red Blood Cell (RBC) Count 3.75 mill/uL (4.70-6.10)
[2025-01-03 05:34] LABS: Anion Gap 10 mmol/L (10-20); BUN (Urea Nitrogen) 6 mg/dL (8.4-25.7); Calc. Creatinine Clearance 163 mL/min (70-130); Calcium 8.8 mg/dL (7.8-10.44); Carbon Dioxide 20 mmol/L (23-31); Chloride 112 mmol/L (98-107); Estimated GFR 113; Glucose 121 mg/dL (80-115); Potassium 3.4 mmol/L (3.5-5.1); Sodium 139 mmol/L (136-145)
[2025-01-03] MEDS: Terazosin HCl 1 MG CAP PO SCH (09:25)
[2025-01-03] MEDS: Potassium Chloride 20 MEQ TAB PO SCH (09:29)
[2025-01-03] MEDS: Rosuvastatin 10 MG TAB PO SCH (22:23)
[2025-01-03] MEDS ORDERED: Acetaminophen 650 MG/20.3 ML UDCUP PER TUBE PRN (22:33)
[2025-01-04 04:46] LABS: #Basophils 0.03 10x3/uL (0.0-0.2); %Basophils 0.2 % (0.0-1.0); %Eosinophils 8.9 % (0.0-10.0); %Lymphocytes 22.5 % (21.0-51.0); %Monocytes 7.5 % (0.0-10.0); %Neutrophils 60.3 % (42.0-75.0); Hematocrit 31.8 % (42.0-52.0); Hemoglobin 10.3 g/dL (14.0-18.0); Mean Corpuscular HGB CONC 32.4 g/dL (32.0-36.0); Mean Corpuscular Hemoglobin 27.4 pg (27.0-31.0); Mean Corpuscular Volume 84.6 fL (78.0-98.0); Mean Platelet Volume 10.4 fL (7.4-10.4); Platelet Count 233 10x3/uL (130-400); RBC Distribution Width 21.2 % (11.5-14.5); Red Blood Cell (RBC) Count 3.76 mill/uL (4.70-6.10)
[2025-01-04 05:08] LABS: Anion Gap 11 mmol/L (10-20); BUN (Urea Nitrogen) 7 mg/dL (8.4-25.7); Calc. Creatinine Clearance 154 mL/min (70-130); Calcium 8.9 mg/dL (7.8-10.44); Carbon Dioxide 22 mmol/L (23-31); Chloride 110 mmol/L (98-107); Estimated GFR 111; Glucose 83 mg/dL (80-115); Potassium 3.7 mmol/L (3.5-5.1); Sodium 139 mmol/L (136-145)
[2025-01-04 11:30] VITALS: TEMP 97.3
[2025-01-04 16:42] VITALS: BP 123/64
== END 2025-01-04 17:43 | disposition home or self-care (01) | DRG 205 ==
LOC: ERS 20:39 → 2NO 22:36
PROVIDERS: ADMIT Student in an Organized Health Care Education/Training Program; ATTEND Hospitalist
DX: J95.02 Infection of tracheostomy stoma (principal); A41.9 Sepsis, unspecified organism; J15.1 Pneumonia due to Pseudomonas; R65.20 Severe sepsis without septic shock; C79.89 Secondary malignant neoplasm of other specified sites; E87.6 Hypokalemia; D64.9 Anemia, unspecified; G40.909 Epilepsy, unspecified, not intractable, without status epilepticus; F10.20 Alcohol dependence, uncomplicated; I10 Essential (primary) hypertension; E78.5 Hyperlipidemia, unspecified; C02.9 Malignant neoplasm of tongue, unspecified; C61 Malignant neoplasm of prostate; Z88.8 Allergy status to other drugs, medicaments and biological substances; Z72.0 Tobacco use; Z86.69 Personal history of other diseases of the nervous system and sense organs; Z80.3 Family history of malignant neoplasm of breast; Z98.890 Other specified postprocedural states; Z79.899 Other long term (current) drug therapy
CPT/HCPCS: 0241U; 36415; 71045; 71260; 74177; 80048; 80053; 80202; 81001; 83605; 83735; 83880; 84100; 84145; 85025; 86141; 87040; 87070; 87077; 87081; 87086; 87186; 87205; 87449; 87899; 94640; 94760; 96374; 96375; J1650; J1885; J2470; J2543; J3370; J3411; J3475; J3480; J7030; J7042; J7626; P9047; Q9967